=== PATIENT | female | born 1975 | race Caucasian/White ===

== ENCOUNTER 2017-11-19 09:44 | Emergency (ER) | payer OTHER ==
[~2017-11-19] VITALS: Ht 165.1 cm; Wt 60.8 kg
[2017-11-19] MEDS ORDERED: ELIQUIS5 MG PO (13:48)
[2017-11-19] MEDS ORDERED: PERCOCET 5/31 TABLET PO (13:48)
[2017-11-19 14:29] VITALS: BP 112/67
[2017-11-19 14:35] LABS: HEMOGLOBIN 13.7 G/DL (11.9-15.5); MCHC 34.3 G/DL (30.0-36.0); MCV 93.5 FL (83-99); PLATELET COUNT 230 K/uL (156-360); RBC DIS.WIDTH-CV 14.1 % (11.8-14.6); RBC DIS.WIDTH-SD 48.5 % (39-53); RED BLOOD COUNT 4.28 M/uL (3.80-5.20); WHITE BLOOD COUNT 9.9 K/uL (4.1-10.2)
[2017-11-19 14:42] LABS: INTER. NORMALIZED RATIO 1.1
[2017-11-19 14:45] LABS: PTT 25.4 SEC (25-37)
[2017-11-19 15:17] LABS: CHLORIDE 107 MEQ/L (99-109); CREATININE 0.7 MG/DL (0.6-1.3); GFR ESTIMATE (CALCULATED) > 59 mL/min/; GLUCOSE 86 mg/dL (70-99); SODIUM 140 MEQ/L (136-147); UREA NITROGEN (BUN) 9 mg/dL (9-23)
== END 2017-11-19 14:30 | disposition home or self-care (01) ==
LOC: EME 09:44
PROVIDERS: Nurse Practitioner Family
DX: I82.402 Acute embolism and thrombosis of unspecified deep veins of left lower extremity (principal); I25.2 Old myocardial infarction; Z86.718 Personal history of other venous thrombosis and embolism; Z87.891 Personal history of nicotine dependence
CPT/HCPCS: 80048; 85027; 85610; 85730; 93971; 99281; 99284

== ENCOUNTER 2017-11-21 11:10 | Emergency (ER) | payer OTHER ==
[~2017-11-21] VITALS: Ht 165.1 cm; Wt 59.9 kg
[~2017-11-21 11:10] MED LIST: ELIQUIS5 MG PO; PERCOCET 5/31 TABLET PO
[2017-11-21 11:17] VITALS: BP 112/85
== END 2017-11-21 12:13 | disposition left against medical advice (07) ==
LOC: EME 11:10
DX: R61 Generalized hyperhidrosis (principal); Z53.21 Procedure and treatment not carried out due to patient leaving prior to being seen by health care provider
CPT/HCPCS: 80048; 84702; 85027; 85610; 85730